=== PATIENT | male | born 1970 | race Caucasian/White ===

== ENCOUNTER 2019-07-12 07:14 | Emergency (ER) | payer OTHER ==
[~2019-07-12] VITALS: Ht 172.7 cm; Wt 90.3 kg
[~2019-07-12 07:14] MED LIST: NOHOMEMEDICATIONS
[2019-07-12] MEDS ORDERED: METFORMIN HCL500 MG PO (07:23)
[2019-07-12] MEDS ORDERED: LISINOPRIL10 MG PO (07:23)
[2019-07-12 08:24] LABS: ABSOLUTE BASOPHILS 0.1 thou/uL (0.0-0.2); ABSOLUTE EOSINOPHILS 0.2 thou/uL (0.0-0.7); ABSOLUTE LYMPHOCYTES 1.2 thou/uL (0.8-5.3); ABSOLUTE MONOCYTES 0.7 thou/uL (0.0-1.2); ABSOLUTE NEUTROPHILS 5.9 thou/uL (1.6-8.1); BASOPHILS 1.1 %; BE -2.7 mmol/L (-2 to +3); EOSINOPHILS 1.9 %; HEMATOCRIT 41.5 % (42.0-52.0); HEMOGLOBIN 14.4 gm/dL (14.0-18.0); LYMPHOCYTES 15.1 %; MCH 27.7 pg (26.0-34.0); MCHC 34.6 g/dL (28.0-37.0); MCV 80.1 fL (80.0-100.0); MPV 7.5 fl. (7.2-11.1); NUCLEATED RBCS 0 /100WBC; PCO2 VENOUS 43.9 mmHg (41.0-51.0); PLATELET COUNT* 235 thou/uL (150-400); PO2 VENOUS 64.5 mmHg (35.0-45.0); POLYS 72.9 %; RBC 5.18 mil/uL (4.50-6.00); WBC 8.1 thou/uL (4.0-11.0)
[2019-07-12 08:44] LABS: ANION GAP 10 mmol/L (7-16); BUN 16 mg/dL (7-18); CALCIUM 8.7 mg/dL (8.5-10.1); CHLORIDE 98 mmol/L (98-107); CO2 25 mmol/L (21-32); CREATININE 0.8 mg/dL (0.6-1.3); GLUCOSE 488 mg/dL (70-99); POTASSIUM 3.9 mmol/L (3.5-5.1); SODIUM 133 mmol/L (136-145)
[2019-07-12 08:56] LABS: ALBUMIN 3.8 g/dL (3.4-5.0); ALKALINE PHOSPHATASE 115 U/L (46-116); SGPT 32 U/L (30-65); TOTAL BILIRUBIN 0.4 mg/dL (<0.1-1.0); TOTAL PROTEIN 7.1 g/dL (6.4-8.2); TROPONIN-I LEVEL <0.06 ng/mL (<0.06)
[2019-07-12] MEDS ORDERED: DOXYCYCLINE 10100 MG PO (09:38)
[2019-07-12 09:54] LABS: SGOT 24 U/L (15-37)
[2019-07-12 10:11] VITALS: BP 135/82
--- NOTE | 2019-07-14 16:12 | EKG ---
[place] [address] ELECTROCARDIOGRAM REPORT Name: TISHA LAMAR Room: [facility]#: [id number] Admission: 07/12/19 Attend Phys: Discharge: 07/12/19 Date of : 70 Report #: [id number] THIS REPORT FOR: //name// [facility] ED Test Date: 2019-07-12 Test Time: 08:12:27 Pat Name: TISHA LAMAR Department: Room: Gender: Impersonator Character: : 1970 Requested By: David Mejia Order Number: [id number] MD: Humberto Salmeron Measurements Intervals [place] Rate: 118 P: 23 CO: 160 QRS: 17 QRSD: 113 T: 2 QT: 334 QTc: 469 Interpretive Statements Sinus tachycardia Borderline intraventricular conduction delay No previous ECG available for comparison Electronically Signed On 07-14-2019 16:11:49 CDT by Humberto Salmeron [email or web address] <ELECTRONICALLY SIGNED> By: Humberto Salmeron MD, [facility] 07/14/19 1611 1 Humberto Salmeron MD, FACC /EPI
== END 2019-07-12 10:17 | disposition home or self-care (01) ==
LOC: M.ERS 07:14
PROVIDERS: Emergency Medicine Emergency Medical Services
DX: E11.621 Type 2 diabetes mellitus with foot ulcer (principal); L97.428 Non-pressure chronic ulcer of left heel and midfoot with other specified severity; L03.116 Cellulitis of left lower limb

== ENCOUNTER → 2019-07-24 | Outpatient (CLI) | payer OTHER ==
[~2019-07-24] MED LIST changes: +DOXYCYCLINE 10100 MG PO; +LISINOPRIL10 MG PO; +METFORMIN HCL500 MG PO
[2019-07-25 02:06] LABS: GLYCOHEMOGLOBIN (HGB A1C) 11.8 % (4.8-5.6)
== END ==
LOC: M.WC 07-21 10:00
PROVIDERS: Family Medicine
DX: E11.621 Type 2 diabetes mellitus with foot ulcer (principal); L97.522 Non-pressure chronic ulcer of other part of left foot with fat layer exposed; I10 Essential (primary) hypertension; Z87.891 Personal history of nicotine dependence

== ENCOUNTER → 2019-07-31 | Outpatient (CLI) | payer OTHER | LOC: M.WC 00:38 | DX: E11.621 Type 2 diabetes mellitus with foot ulcer (principal); L97.522 Non-pressure chronic ulcer of other part of left foot with fat layer exposed; E11.65 Type 2 diabetes mellitus with hyperglycemia; E11.42 Type 2 diabetes mellitus with diabetic polyneuropathy; I10 Essential (primary) hypertension; Z87.891 Personal history of nicotine dependence ==

== ENCOUNTER → 2019-08-08 | Outpatient (CLI) | payer OTHER | LOC: M.WC 01:47 | DX: E11.621 Type 2 diabetes mellitus with foot ulcer (principal); L97.522 Non-pressure chronic ulcer of other part of left foot with fat layer exposed; L84 Corns and callosities; E11.65 Type 2 diabetes mellitus with hyperglycemia; I10 Essential (primary) hypertension; Z87.891 Personal history of nicotine dependence ==

== ENCOUNTER → 2019-08-15 | Outpatient (CLI) | payer OTHER | LOC: M.WC 08-14 08:00 | DX: E11.621 Type 2 diabetes mellitus with foot ulcer (principal); L97.522 Non-pressure chronic ulcer of other part of left foot with fat layer exposed; E11.65 Type 2 diabetes mellitus with hyperglycemia; I10 Essential (primary) hypertension; Z87.891 Personal history of nicotine dependence ==

== ENCOUNTER → 2019-08-21 | Outpatient (CLI) | payer OTHER | LOC: M.WC 05:09 | DX: E11.621 Type 2 diabetes mellitus with foot ulcer (principal); L97.522 Non-pressure chronic ulcer of other part of left foot with fat layer exposed; L84 Corns and callosities; E11.65 Type 2 diabetes mellitus with hyperglycemia; I10 Essential (primary) hypertension; Z87.891 Personal history of nicotine dependence ==

== ENCOUNTER → 2019-08-29 | Outpatient (CLI) | payer OTHER | LOC: M.WC 05:13 | DX: E11.621 Type 2 diabetes mellitus with foot ulcer (principal); L97.522 Non-pressure chronic ulcer of other part of left foot with fat layer exposed; L84 Corns and callosities; E11.65 Type 2 diabetes mellitus with hyperglycemia; I10 Essential (primary) hypertension; Z87.891 Personal history of nicotine dependence ==

== ENCOUNTER → 2019-09-12 | Outpatient (CLI) | payer OTHER | LOC: M.WC 05:53 | DX: E11.621 Type 2 diabetes mellitus with foot ulcer (principal); L97.522 Non-pressure chronic ulcer of other part of left foot with fat layer exposed; L84 Corns and callosities; E11.65 Type 2 diabetes mellitus with hyperglycemia; E11.42 Type 2 diabetes mellitus with diabetic polyneuropathy; I10 Essential (primary) hypertension; Z87.891 Personal history of nicotine dependence ==

== ENCOUNTER → 2019-09-26 | Outpatient (CLI) | payer OTHER | LOC: M.WC 09-24 09:00 | DX: E11.621 Type 2 diabetes mellitus with foot ulcer (principal); L97.521 Non-pressure chronic ulcer of other part of left foot limited to breakdown of skin; L84 Corns and callosities; E11.65 Type 2 diabetes mellitus with hyperglycemia; E11.42 Type 2 diabetes mellitus with diabetic polyneuropathy; I10 Essential (primary) hypertension; Z87.891 Personal history of nicotine dependence ==

== ENCOUNTER 2020-09-01 02:28 | Emergency (ER) | payer OTHER ==
[~2020-09-01] VITALS: Ht 175.3 cm; Wt 86.2 kg
[2020-09-01 05:00] LABS: ABSOLUTE BASOPHILS 0.1 thou/uL (0.0-0.2); ABSOLUTE EOSINOPHILS 0.1 thou/uL (0.0-0.7); ABSOLUTE LYMPHOCYTES 1.3 thou/uL (0.8-5.3); ABSOLUTE MONOCYTES 0.5 thou/uL (0.0-1.2); BASOPHILS 0.9 %; EOSINOPHILS 1.9 %; HEMATOCRIT 42.6 % (42.0-52.0); HEMOGLOBIN 14.7 gm/dL (14.0-18.0); LYMPHOCYTES 18.1 %; MCH 26.9 pg (26.0-34.0); MCHC 34.4 g/dL (28.0-37.0); MCV 78.1 fL (80.0-100.0); MONOCYTES 7.5 %; MPV 7.2 fl. (7.2-11.1); NUCLEATED RBCS 0 /100WBC; PLATELET COUNT* 260 thou/uL (150-400); POLYS 71.6 %; RBC 5.45 mil/uL (4.50-6.00); RDW-CV 13.3 % (10.5-14.5)
[2020-09-01 05:18] LABS: CALCIUM 8.6 mg/dL (8.5-10.1); CREATININE 0.7 mg/dL (0.6-1.3); POTASSIUM 3.8 mmol/L (3.5-5.1)
[2020-09-01 05:23] LABS: TOTAL BILIRUBIN 0.4 mg/dL (<0.1-1.0); TOTAL PROTEIN 7.1 g/dL (6.4-8.2)
[2020-09-01] MEDS ORDERED: METFORMIN HCL500 MG PO (05:58)
[2020-09-01] MEDS ORDERED: LISINOPRIL-HCT1 EACH PO (05:58)
[2020-09-01 06:18] VITALS: BP 111/64
== END 2020-09-01 06:18 | disposition home or self-care (01) ==
LOC: M.ERS 02:28
PROVIDERS: Personal Emergency Response Attendant
DX: L03.032 Cellulitis of left toe (principal); I16.0 Hypertensive urgency; I10 Essential (primary) hypertension; E11.9 Type 2 diabetes mellitus without complications

== ENCOUNTER 2020-10-28 11:35 | Inpatient (IN) | payer OTHER ==
[~2020-10-28] VITALS: Ht 172.7 cm; Wt 84.8 kg
[~2020-10-28 11:35] MED LIST changes: +LISINOPRIL-HCT1 EACH PO
[2020-10-28 15:33] LABS: HEMATOCRIT 39.5 % (42.0-52.0); HEMOGLOBIN 13.2 gm/dL (14.0-18.0); MCH 26.7 pg (26.0-34.0); MCHC 33.5 g/dL (28.0-37.0); MCV 79.7 fL (80.0-100.0); MPV 6.9 fl. (7.2-11.1); RBC 4.96 mil/uL (4.50-6.00); RDW-CV 14.2 % (10.5-14.5); WBC 12.5 thou/uL (4.0-11.0)
[2020-10-28 16:59] LABS: ALBUMIN 2.5 g/dL (3.4-5.0); CALCIUM 9.4 mg/dL (8.5-10.1); CREATININE 0.8 mg/dL (0.6-1.3); POTASSIUM 4.2 mmol/L (3.5-5.1); TOTAL BILIRUBIN 0.7 mg/dL (<0.1-1.0); TOTAL PROTEIN 6.9 g/dL (6.4-8.2)
--- NOTE | 2020-10-28 20:01 | NUR ---
I ASSUMED CARE OF THE PATIENT AN ADMISSION FROM THE ED. HE ARRIVED VIA CART AND TRANSFERED ON HIS OWN. THE IS ALERT AND ORIENTED X4 AND BED IS IN THE LOW LOCKED POSITION. CALL LIGHT IS IN REACH AND PATIENT NEEDS ARE MET WHILE HOURLY ROUNDING. CONSULT WITH INFECTIOUS DISEASE IS COMPLETED AND NEW ORDERS ARE OBTAINED. BOTH FEET ARE CULTURED AND SENT OFF. CXRAY CAME BACK AND HE IS TRANSFERED TO [facility] FOR ISOLATION. REPORT IS CALLED AND PATIENT AND BELONGINGS ARE DELIVERED AFTER CT IS COMPLETED. RESOURCE NURSE COMPLETED ADMISSION. MED SURG STATUS IS MET. POSSIBLE ULTRASOUND AND MRI TOMORROW. PATIENT WAS A DIRECT ADMIT AND BLOOD GLUCOSE IS MONITORED.
[2020-10-28 20:30] LABS: URINE BILIRUBIN NEGATIVE (Negative); URINE BLOOD NEGATIVE (Negative); URINE CLARITY CLEAR; URINE COLOR YELLOW; URINE GLUCOSE-RANDOM 2+ (Negative); URINE KETONES 1+ (Negative); URINE LEUKOCYTES-REFLEX NEGATIVE (Negative); URINE NITRITE-REFLEX NEGATIVE (Negative); URINE PROTEIN TRACE (Negative); URINE UROBILINOGEN 0.2 E.U./dl (0.2-1.0)
[2020-10-28 22:00] VITALS: BP 132/82
[2020-10-28 23:36] VITALS: BP 134/87
[2020-10-29 02:06] LABS: GLYCOHEMOGLOBIN (HGB A1C) 12.4 % (4.8-5.6)
[2020-10-29 04:53] LABS: HEMATOCRIT 35.3 % (42.0-52.0); HEMOGLOBIN 12.1 gm/dL (14.0-18.0); MCH 27.2 pg (26.0-34.0); MCHC 34.2 g/dL (28.0-37.0); MCV 79.4 fL (80.0-100.0); MPV 7.3 fl. (7.2-11.1); RBC 4.45 mil/uL (4.50-6.00); RDW-CV 14.2 % (10.5-14.5); WBC 9.8 thou/uL (4.0-11.0)
--- NOTE | 2020-10-29 05:12 | NUR ---
PT IS AO X4 WITH RA SATTING 98-99. PT HAS A NONPRODUCTIVE COUGH THAT IS FREQUENT. PHOTOS TAKEN OF FOOT WOUNDS FOR ADMISSION. HE HAS COMPLETED SEVERAL STUDIES AD THE RESULTS RE ON THE CHART.PT HAS SLEPT VERY LITTLE THIS PM SHIFT AND HAS HAD MANY QUESTIONS. GOOD PO INTAKE AND AMBULATING TO THE BATHROOM
[2020-10-29 05:18] LABS: ALBUMIN 2.9 g/dL (3.4-5.0); CALCIUM 8.4 mg/dL (8.5-10.1); CREATININE 0.7 mg/dL (0.6-1.3); MAGNESIUM 2.1 mg/dL (1.8-2.4); TOTAL BILIRUBIN 0.4 mg/dL (<0.1-1.0); TOTAL PROTEIN 6.4 g/dL (6.4-8.2)
[2020-10-29 08:47] VITALS: BP 145/90
--- NOTE | 2020-10-29 14:45 | NUR ---
WOUND NURSE: PATIENT SEEN TO ADDRESS WOUNDS ON BLE. RIGHT GREAT TOE, PLANTAR SURFACE PRESENTS WITH CALLOUSED PERIWOUND AND DARK RED NONGRANULATINGN TISSUE IN A WOUND BED MEASURING 1 X 1 X 0.1 CM, WOUND ON 5TH DIGIT AND METATARSAL OF RIGHT FOOT PRSENTING A DARK PURPLISH LESION WITH FLUCTUANCE AND PINK PURULENT DRAINAGE PRESENT IN SMALL AMOUNT. WOUND BED IS OBSCURRED FROM PRESENCE OF CALLOUS AND LOOSE EPIDERMIS. PATIENT STATES LESIONS STARTED BACK IN AUGUST OF LAST YEAR. PATIENT REPORTS NO PAIN R/T DIABETIC NEUROPATHY. CLEANSED WITH SOAP AND WATER, RINSED WITH WATER, THEN PATTED DRY. APPLIED AQUACEL AG TO BOTH WOUNDS. COVERED RT FOOT WOUND WITH ABD UNDER KERLEX THEN SECURED WITH TAPE. LEFT GREAT TOE WOUND COVERED WITH CONFORMING GAUZE AND SECURED WITH TAPE. THIS WAS TOLERATED WELL BY THE PATIENT. PATIENT INSTRUCTED ON MEASURES TO PROMOTE HEALING E.G., OFFLOADING WOUNDS, DIET WITH ADEQUATE PROTEIN, VIT C, AND ZINC. PATIENT STATES HE UNDERSTNADS.
[2020-10-29 16:00] VITALS: BP 144/87
--- NOTE | 2020-10-29 19:54 | NUR ---
PT.LIVES ALONE. WORKS OUTSIDE THE HOME. NO USE OF DME. NO HX OF HH OR SNF. WOUND CX AND BLOOD CX PENDING. PODAITRY CONSULT PENDING. PT.SEEMS TO BE VERY NON COMPLIANT WITH HIS DIABETES, TAKING HIS MEDS,TAKING CARE OF HIMSELF. CM WILL CONTINUE TO FOLLOW.
[2020-10-30] VITALS: BP 153/95
[2020-10-30 04:55] LABS: HEMATOCRIT 34.8 % (42.0-52.0); HEMOGLOBIN 11.4 gm/dL (14.0-18.0); MCH 26.4 pg (26.0-34.0); MCHC 32.9 g/dL (28.0-37.0); MCV 80.3 fL (80.0-100.0); MPV 7.3 fl. (7.2-11.1); RBC 4.33 mil/uL (4.50-6.00); WBC 8.4 thou/uL (4.0-11.0)
[2020-10-30 05:15] LABS: ALBUMIN 2.7 g/dL (3.4-5.0); CALCIUM 8.7 mg/dL (8.5-10.1); CREATININE 0.8 mg/dL (0.6-1.3); MAGNESIUM 1.9 mg/dL (1.8-2.4); POTASSIUM 3.9 mmol/L (3.5-5.1); TOTAL BILIRUBIN 0.4 mg/dL (<0.1-1.0); TOTAL PROTEIN 6.4 g/dL (6.4-8.2)
--- NOTE | 2020-10-30 06:38 | NUR ---
ASSUMED P T'S CARE AT ABOUT 1999. ALERT AND ORIENTED. ABLE TO AMBULATE INDEPENDENTLY TO BATHROOM. DRESSING TO LEFT AND RIGHT FOOT C/D/I. PT DID GET SOME SLEEP BUT WAS MOSTLY ANXIOUS AND TEARFUL ABOUT THE POSSIBLITY OF LOSING HIS LEFT 5TH TOE. TYENOL GIVEN FOR PAIN PER PT'S REQUEST. PRN BENADRL ALSO GIVEN TO HELP WITH ANXIETY. PT REINFORCED ON IMPORTANCE OF ADHERING TO HEALTHY DIET AND LIFESTYLES IN ORDER TO HELP REDUCE COMPLICATIONS OF DIABETES. PT VOICED REPEATED FURSTRATION AND FEAR OF LOSING HIS TOE, ALTHOUGH HE VOICED THAT THE DOC SAID IT WAS A "POSSIBLITY" BUT NOT CERTAIN. NURSING STAYED AND LISTENED TO PT TO CALM AND ENCOURAGE PT. PT VOICED HE WOULD TRY TO PRACTICE BETTER HEALTHY CHOICES. CALL LIGHT WITHIN REACH. WILL CONTINUE TO MONITOR.
[2020-10-30 08:00] VITALS: BP 141/87
[2020-10-30 16:25] VITALS: BP 138/89
[2020-10-30 20:00] VITALS: BP 148/91
[2020-10-31] VITALS: BP 160/93
[2020-10-31 05:24] LABS: HEMATOCRIT 35.9 % (42.0-52.0); MCH 26.8 pg (26.0-34.0); MCHC 33.3 g/dL (28.0-37.0); MCV 80.3 fL (80.0-100.0); MPV 7.1 fl. (7.2-11.1); RBC 4.47 mil/uL (4.50-6.00); WBC 7.1 thou/uL (4.0-11.0)
[2020-10-31 05:35] LABS: CALCIUM 9.3 mg/dL (8.5-10.1); CREATININE 0.7 mg/dL (0.6-1.3); POTASSIUM 3.3 mmol/L (3.5-5.1)
[2020-10-31 09:00] VITALS: BP 157/97
[2020-10-31 16:00] VITALS: BP 157/91
--- NOTE | 2020-10-31 17:38 | NUR ---
PT AO X4 STAYING IN BED MOST OF THE DAY. HE IS ANXIOUS ABOUT LOSING HIS TOE AND GETS QUITE UPSET ABOUT IT. BLOOD SUGARS WELL CONTROLLED ON SSI . PT IS TRYING TO MAKE BETTER DIETARY CHOICES TO HELP CONTROL DM. PT DENIES PAIN, LUNGS CTA WITH NON PRODUCTIVE COUGH. PT IS STILL ON RA. POTASSIUM HAS BEEN REPLACED TODAY AND AWAITING REDRAW. PT IS TO HAVE MRI TOMORROW AND DR ALATORRE HAS MADE HIM NPO AFTER 6AM FOR POSSIBLE SURGERY
[2020-11-01 01:15] VITALS: BP 143/84
[2020-11-01 04:32] LABS: HEMATOCRIT 37.8 % (42.0-52.0); HEMOGLOBIN 12.3 gm/dL (14.0-18.0); MCH 26.4 pg (26.0-34.0); MCHC 32.6 g/dL (28.0-37.0); MCV 80.8 fL (80.0-100.0); RBC 4.68 mil/uL (4.50-6.00); RDW-CV 13.8 % (10.5-14.5); WBC 7.1 thou/uL (4.0-11.0)
[2020-11-01 04:56] LABS: CALCIUM 9.1 mg/dL (8.5-10.1); CREATININE 0.8 mg/dL (0.6-1.3)
[2020-11-01 04:59] LABS: POTASSIUM 4.3 mmol/L (3.5-5.1)
[2020-11-01 08:15] VITALS: BP 162/95
--- NOTE | 2020-11-01 12:44 | NUR ---
RIGHT BASILIC VESSEL ACCESSED FOR SINGLE LUMEN PICC. LINE PRE-TRIMMED TO 38CM AND ADVANCED TO THE ZERO JOE WITH NO RESISTANCE MET. UPPER ARM CIRCUMFERENCE ABOVE INSERTION SITE=12". POST PROCEDURE CXR SHOWS LINE TERMINATES BELOW THE JUANITA 3-4CM. GUIDEWIRE REMOVED, LINE FLUSHED AND INSERTION SITE DRESSED. REPORT GIVEN TO TRACY HERNÁNDEZ.
[2020-11-01 16:00] VITALS: BP 135/72
--- NOTE | 2020-11-01 16:22 | NUR ---
WOUND NURSE: PLANNED TO SEE PATIENT FOR WOUND ASSESSMENT, BUT PATIENT REPORTING THAT DR. PENNINGTON HAS COME IN EVERYDAY TO CHANGE HIS DRESSING AND LOOK AT HIS FEET. PATIENT NOT ASSESSED BY THIS NURSE A RESULT.
--- NOTE | 2020-11-01 18:58 | NUR ---
UNABLE TO SPEAK WITH PT.TODAY. WAS GONE MOST OF LATE MORNING/EARLY AFTERNOON FOR MRI. POTENTIAL FOR INTERVENTION BY PENDING RESULTS OF MRI.
--- NOTE | 2020-11-01 19:20 | NUR ---
PT A&OX4 VSS. PT UP AD MIGUEL. WOUNDS TO BLE, DR PENNINGTON FOLLOWING. PT NPO THIS AM PRIOR TO MRI. PT ACCUCHECK, INSULIN ADMINISTERED DIRECTED. PT CLEARED TO RESUME CARB CONTROL DIET [id number] RESULTS OF MRI. IV TO LFA, ABX INFUSING ORDERED. PT REMAINS CONTINENT OF B/B. DRESSINGS/WOUNDS ASSESSED BY DR PENNINGTON THIS EVENING. PT RESTS ION BED WITH CALL LIGHT IN REACH.
[2020-11-02 06:56] LABS: HEMATOCRIT 37.7 % (42.0-52.0); HEMOGLOBIN 12.5 gm/dL (14.0-18.0); MCH 26.3 pg (26.0-34.0); MCHC 33.3 g/dL (28.0-37.0); MCV 79.1 fL (80.0-100.0); MPV 6.9 fl. (7.2-11.1); RBC 4.76 mil/uL (4.50-6.00); RDW-CV 13.9 % (10.5-14.5); WBC 8.8 thou/uL (4.0-11.0)
[2020-11-02 07:07] LABS: CALCIUM 9.3 mg/dL (8.5-10.1); CREATININE 0.7 mg/dL (0.6-1.3); POTASSIUM 3.7 mmol/L (3.5-5.1)
[2020-11-02 07:40] VITALS: BP 157/93
--- NOTE | 2020-11-02 08:38 | NUR ---
PATIENT HAS SLEPT WELL THROUGHOUT MOST OF THE NIGHT. VSS ON RA. NO C/O PAIN. MEDICATIONS GIVEN ORDERED AND CHARTED. ASSESSMENTT CHARTED. PICC LINE TO RIGHT UPPER ARM- IV ABT GIVEN ORDERED. IV TO LEFT FOREARM-SL. DRESSING TO BILATERAL FEET ARE C/D/I. PATIENT STILL HAVING DRY NON-PRODUCTIVE COUGH. NURSE SPOKE WITH PATIENTS MOTHER THIS AM REGARDING PATIENT AND ANSWERING QUESTIONS THAT SHE HAD. PATIENT INSTRUCTED TO USE CALL LIGHT WHEN NEEDING ASSISTANCE. H0URLY ROUNDS MADE. WILL CONTINUE WITH PLAN OF CARE AND NURSING TO MONITOR.
[2020-11-02] MEDS ORDERED: GUAIFENESIN DM S5 ML PO (09:41)
[2020-11-02] MEDS ORDERED: METRONIDAZOLE500 M4 PO (09:41)
[2020-11-02] MEDS ORDERED: AUGMENTIN 875-1 EACH PO (09:41)
[2020-11-02 12:27] VITALS: BP 157/93
--- NOTE | 2020-11-02 12:30 | NUR ---
PT.TO DISCHARGE TODAY TO HOME ON ORAL ANTIBIOTICS. DISCUSSED WITH . NO HH ORDERED. PT.TO FOLLOW UP IN WOUND CARE CLINIC IN ONE WEEK WITH . PT.COVID POSITIVE ON 10/28. JAN/[facility] SAID HE WOULD NEED TO BE PUSHED BACK TO NOV.10 AT 1300. CM CONTACTED OFFICE TO MAKE SURE IT WAS OK TO NOT SEE PT.FOR 2 WEEKS. SAID THAT WOULD BE JUST FINE. HIS OFFICE WOULD NOT HAVE SEEN HIM UNITL 11/11 SO WILL KEEP WOUND CARE CENTER APPT. NURSING TO TEACH PT./MOM HOW TO CHANGE DRESSING TO TOE. TALKED WITH PT.ABOUT BEING COMPLIANT WITH METFORMIN AND HIS ANTIBIOTICS. MOM WILL TRANSPORT PT.HOME.
--- NOTE | 2020-11-02 13:25 | NUR ---
PT LEFT UNIT AT 1300 PT A&OX4 VSS. PT UP AD MIGUEL, NO WB RESTRICTIONS. DRESSING TO R FOOT CHANGED PRIOR TO PT LEAVING UNIT, PT EDUCATED REGARDING DRESING CHANGES AT HOME AND PROVIDED SUPPLIES FOR WOUND CARE. PT STATES UNDERSTANDING OF DC INSTRUCTIONS AND FOLLOW-UP INFORMATION PROVIDED. PT INSTRUCTED TO REMAIN IN ISOLATION UNTIL AT LEAST 11/07/2020. IV TO LFA REMOVED PRIOR TO DC, PICC TO LIBERTAD REMAINS IN PLACE PER DR BLOUNT. PT DRESSED INDEPENDENTLY. PT LEFT UNIT IN WHEELCHAIR WITH ALL PERSONAL BELONGINGS. PT HAS PRINTED RX FOR NEW MEDICATIONS. PT LEAVES UNIT IN WHEELCHAIR, TRANSPORTED BY NURSING STAFF. PT REFUSED LUNCH PRIOR TO LEAVING STATING HE WAS LEAVING TO GO HOME AND THAT WOULD BE "STUPID".
--- NOTE | 2020-11-03 13:03 | CON ---
[address] [address] CONSULTATION Name: TISHA LAMAR Room: [address] IN M.R.#: [id number] Admission: 10/28/20 Attend Phys: Teodoro Blue MD Discharge: 11/02/20 Date of : 70 Report #: [id number] THIS REPORT FOR: cc: Mitali Joshi Ghaison F. DO ~ Orlando Martell DPM DATE OF SERVICE: 10/31/2020 CHIEF COMPLAINT: Ulceration with soft tissue infection, right distal fifth MTP complicated by poorly controlled type 2 diabetes mellitus. He has concomitant ulceration to the left plantar hallux without clinical signs of infection. Gram stain shows gram-negative rods and gram-positive cocci. Prior swab culture to the same area grew Staphylococcus epidermidis. Post-admission CT and foot radiographs negative for osteomyelitis, subcutaneous emphysema or abscess. Blood cultures negative x 2. He remains on parenteral vancomycin and Zosyn with good tolerance. He has remained afebrile, relates improved appetite. He has low-grade pain to the right fifth MTP area. LABORATORY DATA: WBC 7.1, RBC 4.47, hemoglobin 12.0, hematocrit 35.9 and platelets 315. BUN 8, creatinine 0.7 and glucose 109. Hemoglobin A1c 12.4. PHYSICAL EXAMINATION: Temperature 98.2, pulse 91, respirations 18 and blood pressure 157/97. The erythema to the right distal fifth MTP is decreased since yesterday, but still centered around the lateral wound which is mostly a black eschar. The wound measures roughly 3.0 x 2.7 cm and has a hard black eschar with a small peripheral area of red granulation. The erythema is localized circumferentially around the eschar extending to the dorsal foot, but receding since yesterday. There is no significant erythema to the plantar aspect of the foot. There is no fluctuance or crepitation to the region. He has palpable dorsalis pedis and posterior tibial pulses bilaterally with immediate periwound and digital capillary refill. Ulceration to the left plantar hallux is roughly 1.5 x 1.0 x 0.3 cm with red granulation and a peripheral rim of keratosis. No erythema or cardinal signs of infection to it. IMPRESSION: Soft tissue infection with ulceration, right distal lateral foot with concomitant type 2 diabetes mellitus; cannot rule out septic arthritis/osteomyelitis. PLAN: I recommend MRI with and without contrast, and I see that has already been ordered this morning to be performed tomorrow. I explained to patient that I cannot rule out the possibility of a right distal fifth ray resection for osteomyelitis. I explained that foot radiographs and CT scan are very insensitive to acute osteomyelitis, where an MRI will show intramedullary inflammation within the bone. He understands that he is [place] [address] CONSULTATION Name: TISHA LAMAR Room: [address] M.R.#: [id number] Admission: 10/28/20 Attend Phys: Teodoro Blue MD Discharge: 11/02/20 Date of : 70 Report #: [id number] of his foot, although I assured him that I will remain conservative as much as possible. I will discuss with medicine regarding long-term antibiotics. <ELECTRONICALLY SIGNED> By: Orlando Martell DPM 11/03/20 1303 1240 [id number] Martell DPM /nt
--- NOTE | 2020-11-03 13:03 | CON ---
[address] [address] CONSULTATION Name: DMITRIYINGALETICIARenitaTISHA MONTGOMERY Room: [address] IN M.R.#: [id number] Admission: 10/28/20 Attend Phys: Teodoro Blue MD Discharge: 11/02/20 Date of : 70 Report #: [id number] THIS REPORT FOR: cc: Mitali Joshi Ghaison F. DO ~ Orlando Martell DPM DATE OF SERVICE: 10/30/2020 CHIEF COMPLAINT: Followup of ulceration with soft tissue infection to right foot centered at the fifth MTP joint. He has concomitant ulceration to the left plantar hallux with no clinical infection. A recent swab culture of the right foot wound grew Staphylococcus epidermidis. He is on parenteral vancomycin and Zosyn with good tolerance. Right foot x-ray was negative for bone destruction or osteomyelitis with specific attention to the right fifth MTP joint. The patient remained afebrile, relates low-grade right foot pain. He remains nonweightbearing. LABORATORY DATA: WBC 8.4, RBC 4.33, hemoglobin 11.4, hematocrit 34.8, platelets 274. BUN 8, creatinine 0.8, glucose 286. PHYSICAL EXAMINATION: There is a significant decrease in erythema to the right foot. There is brown/black eschar to the lateral fifth MTP joint with no underlying crepitation. The inflammations localized around the dorsolateral to lateral fifth MTP. The erythema has receded along the dorsal and plantar foot. He has palpable pedal pulses with no pallor/cyanosis or signs of acute vascular embarrassment. Ulceration to the left plantar hallux is relatively unchanged with no erythema or exposed bone to the wound bed. IMPRESSION: Soft tissue infection with ulceration, right foot; ulceration, left plantar hallux; type 2 diabetes mellitus with peripheral neuropathy. PLAN: The wounds were cleansed and redressed with Aquacel Ag, ABDs, Kerlix and gauze. We will monitor the patient tomorrow, I am not anticipating any formal surgical debridement in the operating room at this point. <ELECTRONICALLY SIGNED> By: Orlando Martell DPM 11/03/20 1303 1607 [id number] Martell DPM /nt
--- NOTE | 2020-11-03 13:03 | CON ---
[address] [address] CONSULTATION Name: DMITRIYSHONDATISHA MONTGOMERY Room: [address] IN M.R.#: [id number] Admission: 10/28/20 Attend Phys: Teodoro Blue MD Discharge: 11/02/20 Date of : 70 Report #: [id number] THIS REPORT FOR: cc: Mitali Joshi Ghaison F. DO ~ Orlando Martell DPM DATE OF SERVICE: 10/30/2020 ADMISSION DIAGNOSES: Ulceration with cellulitis, right foot. CHIEF COMPLAINT/HISTORY OF PRESENT ILLNESS: A 50-year-old male, admitted through the Emergency Department with worsening inflammation and blistering to the right distal lateral foot near the fifth MTP. He also has an ulceration to the left plantar hallux. He has type 2 diabetes mellitus with peripheral neuropathy. He relates trimming a callus to the right foot back in August with subsequent wound development. The etiology of the left plantar hallux wound is less apparent. He did present to the Emergency Department in August and had a shot of ceftriaxone. It is unclear whether the patient has been following up with a provider for the wounds, although he says he has seen Dr. Ney Lucero in the past at [facility]. He is currently on parenteral vancomycin and Zosyn. Blood cultures are negative x 2, right foot wound culture is growing gram-negative rods and gram-positive cocci. CT scan of the foot was negative for bone destruction and arterial Doppler ultrasound showed triphasic waveforms to the extremities without signs of focal stenosis. LABORATORY DATA: WBC 9.8, hemoglobin 12.1, hematocrit 35.3, platelets 235. BUN 9, creatinine 0.7, glucose 257. Hemoglobin A1c is 12.4. Albumin is 2.9. PHYSICAL EXAMINATION: There is a superficial ulceration to the right fifth MTP region. There is regional erythema, edema and fluctuance with no underlying crepitation. There is sloughing of the overlying skin with bulla formation upon debridement of the skin. The underlying wound bed has a soft friable type consistency at the lateral aspect of the fifth MTP joint. There is no visible or palpable bone. There is no underlying crepitation. There is no tunneling or signs of deep penetration. The skin blistering extends to the plantar aspect of the foot, but there is no deep penetration present. He has palpable dorsalis pedis and posterior tibial pulses bilaterally. There is a discrete ulceration to the plantar aspect of the left hallux that measures roughly 2.0 x 2.0 x 0.3 cm. There is a fibrotic base with a keratotic rim. There is no inflammation or cardinal signs of infection to it. IMPRESSION: 1. Soft tissue infection with ulceration, right foot, [place] [address] CONSULTATION Name: TISHA LAMAR Room: [address] IN M.R.#: [id number] Admission: 10/28/20 Attend Phys: Teodoro Blue MD Discharge: 11/02/20 Date of : 70 Report #: [id number] controlled type 2 diabetes mellitus. 2. Ulceration to left plantar hallux without clinical infection. PLAN: I performed an extensive wound debridement at bedside with scissors and forceps to remove skin and subcutaneous tissue from the right lateral foot wound. I took an aerobic swab culture of the underlying tissue. The wound was cleansed with wound cleanser and dressed with ABD, Kerlix gauze. I ordered an x-ray of the right foot. I do not plan on taking him to the operating room at this point, as I would like to see how the tissue responds to the parenteral antibiotics and wound debridement. I will monitor him daily during his hospitalization. Pending clinical course, may perform MRI. <ELECTRONICALLY SIGNED> By: Orlando Martell DPM 11/03/20 1303 0822 [id number] Martell DPM /bienvenido
== END 2020-11-02 13:00 | disposition home or self-care (01) | DRG 622 ==
LOC: M.PRE 11:35 → M.ORTHSURG 12:21 → M.2W 12:21 → M.ORTHSURG 19:15
PROVIDERS: Family Medicine; Internal Medicine; ADMIT Internal Medicine; ATTEND Internal Medicine
DX: E11.628 Type 2 diabetes mellitus with other skin complications (principal); J15.6 Pneumonia due to other Gram-negative bacteria; E11.621 Type 2 diabetes mellitus with foot ulcer; E11.42 Type 2 diabetes mellitus with diabetic polyneuropathy; L97.519 Non-pressure chronic ulcer of other part of right foot with unspecified severity; E11.65 Type 2 diabetes mellitus with hyperglycemia; L97.529 Non-pressure chronic ulcer of other part of left foot with unspecified severity; I10 Essential (primary) hypertension; Z20.822 Contact with and (suspected) exposure to COVID-19; L03.032 Cellulitis of left toe; L03.031 Cellulitis of right toe; S91.109A Unspecified open wound of unspecified toe(s) without damage to nail, initial encounter; X58.XXXA Exposure to other specified factors, initial encounter; Y93.89 Activity, other specified; Z87.891 Personal history of nicotine dependence; Z91.19 Patient's noncompliance with other medical treatment and regimen; Y92.89 Other specified places as the place of occurrence of the external cause; Y99.8 Other external cause status

== ENCOUNTER → 2020-11-10 | Outpatient (CLI) | payer OTHER ==
[~2020-11-10] MED LIST changes: +AUGMENTIN 875-1 EACH PO; +GUAIFENESIN DM S5 ML PO; +METRONIDAZOLE500 M4 PO
[2020-11-10 14:36] LABS: ABSOLUTE BASOPHILS 0.2 thou/uL (0.0-0.2); ABSOLUTE EOSINOPHILS 0.1 thou/uL (0.0-0.7); ABSOLUTE LYMPHOCYTES 1.3 thou/uL (0.8-5.3); ABSOLUTE MONOCYTES 0.5 thou/uL (0.0-1.2); EOSINOPHILS 1.6 %; HEMATOCRIT 41.3 % (42.0-52.0); HEMOGLOBIN 13.6 gm/dL (14.0-18.0); LYMPHOCYTES 15.9 %; MCHC 32.9 g/dL (28.0-37.0); MCV 79.2 fL (80.0-100.0); MONOCYTES 5.7 %; MPV 7.2 fl. (7.2-11.1); NUCLEATED RBCS 0 /100WBC; PLATELET COUNT* 334 thou/uL (150-400); POLYS 74.8 %; RBC 5.22 mil/uL (4.50-6.00); RDW-CV 14.2 % (10.5-14.5)
[2020-11-10 14:43] LABS: CALCIUM 9.4 mg/dL (8.5-10.1); CREATININE 0.8 mg/dL (0.6-1.3); POTASSIUM 3.7 mmol/L (3.5-5.1)
[2020-11-10 15:40] LABS: ESR (SEDRATE) 6 mm/hr (0-20)
== END ==
LOC: M.WC 13:00
PROVIDERS: ATTEND Podiatrist Foot & Ankle Surgery
DX: E11.621 Type 2 diabetes mellitus with foot ulcer (principal); L97.512 Non-pressure chronic ulcer of other part of right foot with fat layer exposed; L97.522 Non-pressure chronic ulcer of other part of left foot with fat layer exposed; L84 Corns and callosities; I10 Essential (primary) hypertension; Z87.891 Personal history of nicotine dependence

== ENCOUNTER → 2020-11-17 | Outpatient (CLI) | payer OTHER | LOC: M.WC 12:49 | PROVIDERS: ATTEND Podiatrist Foot & Ankle Surgery | DX: E11.621 Type 2 diabetes mellitus with foot ulcer (principal); L97.512 Non-pressure chronic ulcer of other part of right foot with fat layer exposed; L97.522 Non-pressure chronic ulcer of other part of left foot with fat layer exposed; L03.115 Cellulitis of right lower limb; L84 Corns and callosities; E11.40 Type 2 diabetes mellitus with diabetic neuropathy, unspecified; I10 Essential (primary) hypertension; Z87.891 Personal history of nicotine dependence ==

== ENCOUNTER → 2020-11-26 | Outpatient (CLI) | payer OTHER | LOC: M.WC 07:53 | PROVIDERS: ATTEND Family Medicine | DX: E11.621 Type 2 diabetes mellitus with foot ulcer (principal); L97.522 Non-pressure chronic ulcer of other part of left foot with fat layer exposed; L97.512 Non-pressure chronic ulcer of other part of right foot with fat layer exposed; E11.42 Type 2 diabetes mellitus with diabetic polyneuropathy; L03.116 Cellulitis of left lower limb; L03.115 Cellulitis of right lower limb; L84 Corns and callosities; I10 Essential (primary) hypertension; Z87.891 Personal history of nicotine dependence ==

== ENCOUNTER → 2020-12-01 | Outpatient (CLI) | payer OTHER | LOC: M.WC 13:04 | PROVIDERS: ATTEND Podiatrist Foot & Ankle Surgery | DX: E11.621 Type 2 diabetes mellitus with foot ulcer (principal); L97.512 Non-pressure chronic ulcer of other part of right foot with fat layer exposed; L97.522 Non-pressure chronic ulcer of other part of left foot with fat layer exposed; L03.115 Cellulitis of right lower limb; L84 Corns and callosities; E11.42 Type 2 diabetes mellitus with diabetic polyneuropathy; I10 Essential (primary) hypertension; Z87.891 Personal history of nicotine dependence ==